=== PATIENT | male | born 1965 | race Caucasian/White ===

== ENCOUNTER 2017-11-15 21:20 | Emergency (ER) | payer OTHER ==
[~2017-11-15] VITALS: Ht 177.8 cm; Wt 100.2 kg
[~2017-11-15 21:20] MED LIST: KOMBIGLYZE XR1 EAC2 PO
[2017-11-15 22:22] LABS: BILIRUBIN NEGATIVE; BLOOD LARGE; GLUCOSE (STRIP) >=500; KETONES NEGATIVE; LEUKOCYTES NEGATIVE; NITRITE NEGATIVE; PROTEIN (STRIP) 100; SPECIFIC GRAVITY 1.028 (1.000-1.030); UROBILINOGEN 0.2 MG/DL (0.2-1.0)
[2017-11-15 22:23] LABS: APPEARANCE TURBID ((CLEAR)); COLOR RED ((YELLOW)); RED BLOOD CELLS TNTC /HPF (0-5); UCUL ADDED? YES
[2017-11-15 22:42] LABS: HEMATOCRIT 44.4 % (38.0-50.0); HEMOGLOBIN 15.9 G/DL (12.5-16.6); MCH 29.6 PG (29.0-34.0); MCHC 35.8 G/DL (30.0-36.0); MCV 82.5 FL (86-99); PLATELET COUNT 249 K/uL (156-360); RBC DIS.WIDTH-CV 12.3 % (11.8-14.6); RBC DIS.WIDTH-SD 37.2 % (39-53); RED BLOOD COUNT 5.38 M/uL (4.00-5.50); WHITE BLOOD COUNT 11.2 K/uL (4.1-10.2)
[2017-11-15 22:50] LABS: CHLORIDE 104 mEq/L (99-109); POTASSIUM 4.3 mEq/L (3.7-5.4); SODIUM 139 mEq/L (136-147)
[2017-11-15 22:52] LABS: GLUCOSE 311 mg/dL (70-99)
[2017-11-15 22:53] LABS: TOTAL PROTEIN 6.8 g/dL (6.4-8.3)
[2017-11-15 22:54] LABS: TOTAL BILIRUBIN 0.6 mg/dL (0.0-1.0)
[2017-11-15 22:56] LABS: ALKALINE PHOSPHATASE 176 IU/L (3-129); CREATININE 0.9 mg/dL (0.6-1.3); GFR ESTIMATE (CALCULATED) > 59 mL/min/ (58.99-99999)
[2017-11-15 22:57] LABS: UREA NITROGEN (BUN) 24 mg/dL (9-23)
[2017-11-15 22:58] LABS: AST (GOT) 17 IU/L (2-34)
[2017-11-15 22:59] LABS: ALT (GPT) 21 IU/L (3-49)
[2017-11-16 00:15] VITALS: BP 144/88
== END 2017-11-16 00:16 | disposition home or self-care (01) ==
LOC: EME 21:20
PROVIDERS: Nurse Practitioner Acute Care
DX: N20.0 Calculus of kidney (principal); R31.9 Hematuria, unspecified; E11.9 Type 2 diabetes mellitus without complications
CPT/HCPCS: 74176; 80053; 81003; 85027; 87077; 87086; 87147; 87186; 99281; 99284